=== PATIENT | female | born 1950 | race Caucasian/White ===

== ENCOUNTER → 2017-04-27 | Day surgery (SDC) | payer MEDICARE, OTHER ==
[~2017-04-27] VITALS: Ht 160 cm; Wt 73.9 kg
[~2017-04-27] MED LIST: CALCIUM 600+D1 EAC3 PO; EYE ITCH RELIEF5 ML OP; FISH OIL 1,2001 EACH PO; LIORESAL TAB 1010 MG PO; LOSARTAN POTAS100 MG PO; NORVASC 5 MG TAB5 MG PO; OMEPRAZOLE20 MG PO
== END | disposition home or self-care (01) ==
LOC: OR 07:57
PROVIDERS: Internal Medicine Gastroenterology
PROC: 0DBL8ZX Excision of Transverse Colon, Via Natural or Artificial Opening Endoscopic, Diagnostic (ICD-10-PCS; principal; 2017-04-27 14:00)
DX: Z12.11 Encounter for screening for malignant neoplasm of colon (principal); K63.5 Polyp of colon; K64.0 First degree hemorrhoids; I10 Essential (primary) hypertension; K21.9 Gastro-esophageal reflux disease without esophagitis; M19.90 Unspecified osteoarthritis, unspecified site; Z83.3 Family history of diabetes mellitus; Z88.2 Allergy status to sulfonamides; Z88.5 Allergy status to narcotic agent; Z79.899 Other long term (current) drug therapy; Z90.49 Acquired absence of other specified parts of digestive tract; Z98.890 Other specified postprocedural states
CPT/HCPCS: J0461; J2250; J7030